=== PATIENT | female | born 1980 | race Caucasian/White ===

== ENCOUNTER 2019-10-05 10:48 | Outpatient (CLI) | payer OTHER ==
[2019-10-05] MEDS ORDERED: IOHEXOL 50 ML IV ONE (11:10)
== END 2019-10-05 20:32 | disposition home or self-care (01) ==
LOC: SRD 10:48
PROVIDERS: ATTEND Specialist
DX: N92.6 Irregular menstruation, unspecified (principal); D25.9 Leiomyoma of uterus, unspecified; N94.6 Dysmenorrhea, unspecified
CPT/HCPCS: 58340; 74740; Q9967